=== PATIENT | female | born 1960 | race Caucasian/White ===

== ENCOUNTER → 2021-06-10 | Outpatient (CLI) | payer BC ==
[~2021-06-10] MED LIST: ATOR20TA65 PO; BIOT25008 PO; ESCI-8 PO; ESOM20CA31 PO; LEVO50TA4 PO; OXYB-66 PO; VALS80TA30 PO; VERE240SR PO; naproxen; zyrtec
== END | disposition home or self-care (01) ==
LOC: RAH 12:53
PROVIDERS: ATTEND Family Medicine
DX: E21.0 Primary hyperparathyroidism (principal)
CPT/HCPCS: 78070; A9500